=== PATIENT | male | born 1985 | race Caucasian/White ===

== ENCOUNTER 2022-04-01 11:50 | Emergency (ER) | payer BC ==
[~2022-04-01] VITALS: Ht 185.4 cm; Wt 86.4 kg
[2022-04-01 11:57] VITALS: BP 139/91; PULSE 90; TEMP 97.8
[2022-04-01] MEDS ORDERED: FLEXERIL 1010 MG/TAB PO (12:27)
[2022-04-01] MEDS ORDERED: PREDNISONE20 MG PO (12:27)
== END 2022-04-01 12:50 | disposition home or self-care (01) ==
LOC: COL.ER 11:50
DX: M54.50 Low back pain, unspecified (principal); M54.6 Pain in thoracic spine; X50.0XXA Overexertion from strenuous movement or load, initial encounter